=== PATIENT | female | born 1990 | race Caucasian/White ===

== ENCOUNTER 2023-06-24 10:42 | Emergency (ER) | payer OTHER, SELFPAY ==
[2023-06-24 10:50] VITALS: BP 118/68; PULSE 80; RESP 16; TEMP 36.4; O2SAT 98
[2023-06-24 10:52] VITALS: BP 118/68; PULSE 84; RESP 14; TEMP 36.4; O2SAT 98
--- NOTE | 2023-06-24 11:22 | ED.GENADUL_ITS ---
Discharge Plan Disposition Patient Disposition: Home Discharge Details Clinical Impression: Headache Primary Care Provider: Rosie,Local ED Provider: Galina Acosta Home Meds and New Rx's Prescriptions: New sumatriptan succinate 25 mg tablet See Rx Instructions .ROUTE .COMPLEX Qty: 10 0RF Rx Instructions: take 1 tab at onset of headache; if no relief may repeat 1 tab after at least 2 hrs; max = 4 tabs/24 hr prochlorperazine maleate [Compazine] 10 mg tablet 10 mg PO Q8H PRNQty: 10 0RF Continued levetiracetam 1,000 mg tablet 1,500 mg PO DAILY Patient Comments: patient took 750 mg. Thursday, has not been able to take due to vomiting ondansetron HCl 4 mg tablet 4 mg PO DAILY Discharge Instructions Instructions: General Headache (ED) Additional Instructions: May take the sumatriptan as needed for headache, Compazine as needed for nausea and headache Ibuprofen and Tylenol as needed for discomfort Try to keep yourself hydrated with fluids Return earlier should he have new or worsening complaints You have been placed on the list to establish care with a primary care physician locally Medical Decision Making This 32-year-old female presents with report, history of migraine headaches, no significant acute change Neurologically intact, cranial nerves II through XII intact, ambulatory with steady gait, light and sound sensitive, pupils equal round reactive to light and accommodation No indication for CT imaging at this time, pain was nicely controlled with IM 10 mg of Compazine and 7.5 mg of Toradol Requesting discharge home, given several tablets of sumatriptan and Compazine as needed Able to tolerate p.o. Return precautions reviewed in detail No clinical evidence consistent with meningitis, discharged home with stable vitals and exam HPI General Date/Time Provider Initiated Documentation: 06/24/23 11:03 . 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 Patient states headache is quite similar except for the longevity. Denies any recent head trauma, carbon monoxide exposure, vision change. Denies chance of . Denies stiff neck or head fever. Headache predominantly on the right side of her head. Light and sound sensitive. Related Data Home Medications Medication Instructions Recorded Confirmed levetiracetam 1,000 mg tablet 1,500 mg PO DAILY hx siezure 06/24/23 06/24/23 ondansetron HCl 4 mg tablet 4 mg PO DAILY 06/24/23 06/24/23 prochlorperazine maleate 10 mg 10 mg PO Q8H PRN #10 tabs 06/24/23 tablet (Compazine) sumatriptan succinate 25 mg tablet See Rx Instructions PO .COMPLEX 06/24/23 #10 tabs Previous Rx's Medication Instructions Recorded prochlorperazine maleate 10 mg 10 mg PO Q8H PRN #10 tabs 06/24/23 tablet (Compazine) sumatriptan succinate 25 mg tablet See Rx Instructions PO .COMPLEX 06/24/23 #10 tabs Allergies Allergy/AdvReac Type Severity Reaction Status Date / Time No Known Allergies Allergy Unverified 06/24/23 11:03 General Stated Complaint: Headache ANDER: 3 PFSH All Active Problems (Updated 06/24/23 @ 12:29 by THIEN Avelar) Headache (Acute) Social History Smoking/Tobacco Use Status: Never Smoking risk assessment performed?: Yes Alcohol Intake: current Alcohol Intake frequency: a few times a week Substance use type: does not use Course Vital Signs Vital signs: Vital Signs Temperature 36.4 C L 06/24/23 10:50 Pulse 80 06/24/23 10:50 Respiratory Rate 16 06/24/23 10:50 Blood Pressure 118/68 06/24/23 10:50 Pulse Oximetry 98 06/24/23 10:50 Temperature 36.4 C L 06/24/23 10:52 Temperature Source Tympanic 06/24/23 10:52 Pulse 84 06/24/23 10:52 Respiratory Rate 14 06/24/23 10:52 Respiratory Effort Normal 06/24/23 10:52 Blood Pressure 118/68 06/24/23 10:52 Blood Pressure Position Sitting 06/24/23 10:52 Pulse Oximetry 98 06/24/23 10:52 Oxygen Delivery Method Room Air 06/24/23 10:52 Oxygen Flow Rate 0 06/24/23 10:50 Pain Level 2 06/24/23 10:52
[2023-06-24] MEDS: Prochlorperazine 10 MG/2 ML VIAL IM (11:27)
[2023-06-24] MEDS: Ketorolac 15 MG/ML VIAL 7.5 MG IM (11:28)
[2023-06-24 12:34] VITALS: BP 117/85; PULSE 69; RESP 18; O2SAT 99
== END 2023-06-24 12:37 | disposition home or self-care (01) ==
PROVIDERS: Emergency Provider Physician Assistant
DX: G43.909 Migraine, unspecified, not intractable, without status migrainosus (principal); G40.909 Epilepsy, unspecified, not intractable, without status epilepticus; Z87.820 Personal history of traumatic brain injury
CPT/HCPCS: 96372; 99283; J0780; J1885

== ENCOUNTER 2023-07-16 11:49 | Outpatient (CLI) | payer OTHER, SELFPAY ==
[2023-07-16 14:37] LABS: Abs Immature Grans 0.01 10^3/uL (0.0-0.06); Absolute Basophil Count 0.05 10^3/uL (0.0-0.2); Absolute Eosinophil Count 0.11 10^3/uL (0.0-0.7); Absolute Lymphocyte Count 1.98 10^3/uL (1.2-3.4); Absolute Monocyte Count 0.51 10^3/uL (0.1-0.8); Absolute Neutrophil Count 3.02 10^3/uL (1.2-6.7); Basophils % 0.9; Eosinophils % 1.9; HCT 36.9 % (36.0-46.0); HGB 12.6 g/dL (11.2-15.7); Immature Grans % 0.2; Lymphocytes % 34.9; MCHC 34.1 % (32.0-36.0); MCV 94 fL (80-95); MPV 10.7 fL (8.0-11.0); Neutrophils % 53.1; Platelet Count 243 10^3/uL (130-400); RBC 3.94 10^6/uL (3.93-5.22); RDW 11.7 % (11.7-14.6); RDW-SD 40.3 fL; WBC 5.68 10^3/uL (4.4-10.8)
[2023-07-16 15:12] LABS: ALT 21 U/L (14-59); AST 16 U/L (15-37); Albumin 3.9 g/dL (3.4-5.0); Alkaline Phosphatase 60 U/L (46-116); Anion Gap 8.4 mmol/L (3-11); BUN 13 mg/dL (7-18); Bilirubin, Total 0.3 mg/dL (0.2-1.0); CO2 26.6 mmol/L (21.0-32.0); CREATININE 0.7 mg/dL (0.55-1.02); Calcium 9.1 mg/dL (8.5-10.1); Chloride 103 mmol/L (98-107); Estimated GFR 116.31 (mL/min/1.73m2); Glucose 90 mg/dL (74-106); Sodium 138 mmol/L (136-145); Total Protein 7.3 g/dL (6.4-8.2)
[2023-07-18 12:17] LABS: Levetiracetam 27.1 mcg/mL
== END 2023-07-16 11:50 | disposition home or self-care (01) ==
LOC: LBO 07-17 11:49
PROVIDERS: Visit Provider Nurse Practitioner Family
DX: G40.909 Epilepsy, unspecified, not intractable, without status epilepticus (principal)
CPT/HCPCS: 36415; 80053; 80177; 85025

== ENCOUNTER 2023-10-01 16:02 | Emergency (ER) | payer OTHER, SELFPAY ==
[2023-10-01 16:06] VITALS: BP 124/68; PULSE 76; RESP 16; TEMP 36.2; O2SAT 96
--- NOTE | 2023-10-01 16:20 | ED.GENADUL_ITS ---
Discharge Plan Disposition Patient Disposition: Home Condition: Stable Discharge Details Clinical Impression: Migraine syndrome Primary Care Provider: Unknown,Unknown ED Provider: Dylon Singleton Home Meds and New Rx's Prescriptions: Continued levetiracetam 1,000 mg tablet 1,500 mg PO DAILY Patient Comments: patient took 750 mg. Thursday, has not been able to take due to vomiting ondansetron HCl 4 mg tablet 4 mg PO DAILY sumatriptan succinate 25 mg tablet See Rx Instructions .ROUTE .COMPLEX Qty: 10 0RF Rx Instructions: take 1 tab at onset of headache; if no relief may repeat 1 tab after at least 2 hrs; max = 4 tabs/24 hr prochlorperazine maleate [Compazine] 10 mg tablet 10 mg PO Q8H PRNQty: 10 0RF Discharge Instructions Instructions: Migraine Headache (ED) Additional Instructions: You were seen in the emergency department for your migraine headache syndrome. You had some vomiting with this and we tried to take care of this with several medicines which achieved good relief. Please continue taking your at home migraine medications and your at home dose of Keppra. Please return to the ER for any severe increase in symptoms especially with fever and neck stiffness, please return for any intractable nausea or vomiting, any near fainting episodes or palpitations or visual changes or altered mentation. HPI General Date/Time Provider Initiated Documentation: 10/01/23 16:11 . HPI Narrative: 32 year-old female presents to ED today by POV/ambulating with her spouse with a chief complaint of R sided headache- has chronic migraines and history of TBI- with onset for the past few days. Feels like her usual migraines but she hasn't been able to keep down oral meds, also missed her Keppra dose last night. Quality described as R sided migraine, nausea/vomiting without vertigo, no radiation to numbness/tingling, weakness, hemiparesis, recent URI/fever, neck stiffness. Severity is described as moderate. Palliating factors include attempted oral meds but keeps vomiting them up. Provoking factors include nothing specific. Patient not anticoagulated. Related Data Home Medications Medication Instructions Recorded Confirmed levetiracetam 1,000 mg tablet 1,500 mg PO DAILY hx siezure 06/24/23 10/01/23 ondansetron HCl 4 mg tablet 4 mg PO DAILY 06/24/23 10/01/23 prochlorperazine maleate 10 mg 10 mg PO Q8H PRN #10 tabs 06/24/23 10/01/23 tablet (Compazine) sumatriptan succinate 25 mg tablet See Rx Instructions PO .COMPLEX 06/24/23 10/01/23 #10 tabs Previous Rx's Medication Instructions Recorded prochlorperazine maleate 10 mg 10 mg PO Q8H PRN #10 tabs 06/24/23 tablet (Compazine) sumatriptan succinate 25 mg tablet See Rx Instructions PO .COMPLEX 06/24/23 #10 tabs Allergies Allergy/AdvReac Type Severity Reaction Status Date / Time No Known Allergies Allergy Unverified 10/01/23 16:06 General Stated Complaint: Headache ANDER: 3 Review of Systems All systems reviewed & are unremarkable except as noted in HPI and below Exam Narrative Exam Narrative: GENERAL APPEARANCE: Well-nourished, non-toxic, awake and alert, atraumatic, no acute distress. SKIN: Warm, pink, dry, intact, without rashes/lesions/ulcerations. HEAD: Normocephalic, atraumatic, normal hair distribution for gender/age. 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 ENT: Nares patent, no circumoral cyanosis, no facial swelling NECK: Supple, trachea midline, painless cervical ROM. LUNGS/CHEST: Non-labored respirations, normal A/P diameter, symmetrical expansion, no chest wall deformity HEART (CV/PV): No peripheral edema, no JVD. ABDOMEN: Soft, non-distended, no guarding. MSK: Normal ROM, no swelling/deformity to bilateral UEs or LEs, moving all extremities without weakness, no cyanosis, spine midline without tenderness, normal curvature. NEURO: Mental Status AAOx4 - alert to person, place, time, events No facial droop, no forehead involvement, no dysmetria with FNF Motor: No focal weakness - strength 5/5 in bilateral UEs and LEs, proximal and distal, symmetric. Sensory: sensation intact to light touch globally. Gait normal: patient ambulated without ataxia into ED room. PSYCH: euthymic, cooperative, pleasant, appropriate speech Course Vital Signs Vital signs: Vital Signs Temperature 36.2 C L 10/01/23 16:06 Pulse 76 10/01/23 16:06 Respiratory Rate 16 10/01/23 16:06 Blood Pressure 124/68 10/01/23 16:06 Pulse Oximetry 96 10/01/23 16:06 Temperature 36.2 C L 10/01/23 16:06 Temperature Source Temporal Artery Scan 10/01/23 16:06 Pulse 76 10/01/23 16:06 Respiratory Rate 16 10/01/23 16:06 Respiratory Effort Normal, Non-Labored 10/01/23 16:09 Blood Pressure 124/68 10/01/23 16:06 Blood Pressure Position Supine 10/01/23 16:06 Pulse Oximetry 96 10/01/23 16:06 Oxygen Delivery Method Room Air 10/01/23 16:06 Oxygen Flow Rate 0 10/01/23 16:06 Pain Level 2 10/01/23 16:06 Medical Decision Making This dictation utilizes [id number] dictation software and may contain unedited grammatical errors. 32 y/o F presents to ED today with a chief complaint of R-sided migraine headache, has chronic migranes- usually takes sumatriptan but hasn't been able to keep down oral medications. Has history TBI and is on Keppra, with missed dose last night. Patient states it feels like her usual migraines, denies diarrhea, denies abdominal pain, states vomiting without vertigo, denies numbness/tingling/weakness to any extremity, denies visual changes. Patients' medical history: TBI history. 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 Pertinent exam findings / vital signs include no dysmetria with cerebellar testing, neuro intact, chronic OS vertical gaze palsy, benign cardiopulmonary status, nontoxic vitals. Differential / pathologies of concern include Migraine Syndrome, unlikely ICH, Consider Nausea/vomiting/gastritis. Diagnostic studies of: -CBC, CMP, CRP/ESR, Lactate. Interventions of: -IVF NS, IV Tylenol 1g, 15mg IV Ketorlac, 10mg IV Reglan, 25mg IV Benadryl, 1x dose 10mg IV Dexamethasone for migraine trial of relief, will PO challenge with Sumatriptan after effectiveness achieved for N/V. -Patient refused IV Keppra, states hasn't had a seizure in 9 years, feels comfortable taking PO dose tonight. ED Course/Assessment/Plan: 32-year-old female presents with migraine 4 days onset, has chronic right-sided migraines and has been unable to hold down p.o. medications. Her migraine symptoms achieved near complete relief with IV cocktail of medicines including Tylenol Toradol Reglan and Benadryl as well as a one-time dose of dexamethasone. I advised her to take p.o. dose of sumatriptan when she gets home, she was comfortable with taking her p.o. Keppra when she got home. I advised her strict return criteria for any severe headaches with fevers and neck stiffness as well as intractable nausea and vomiting. Findings not consistent with meningismus, altered mentation, toxic presentation. Disposition of Migraine Syndrome. Patient verbalized understanding of the plan and return to ED criteria and engaged in shared decision making. Medical Records Medical records reviewed: Yes I reviewed the patient's medical records. Lab Data Lab results reviewed: Yes I reviewed the patient's lab results. Labs: Laboratory Tests Range/Units 10/01/23 16:55 WBC (4.4-10.8) 10^3/uL 9.12 RBC (3.93-5.22) 10^6/uL 4.10 Hgb (11.2-15.7) g/dL 13.1 Hct (36.0-46.0) % 38.7 MCV (80-95) fL 94 MCH (27.0-33.0) pg 32.0 MCHC (32.0-36.0) % 33.9 RDW (11.7-14.6) % 11.4 L Plt Count (130-400) 10^3/uL MPV (8.0-11.0) fL Immature Gran % 0.3 Neutrophils % 80.2 Lymphocytes % 14.8 Monocytes % 4.1 Eosinophils % 0.1 Basophils % 0.5 Nucleated RBC % (0.0-0.3) % 0.0 Absolute Neutrophils (1.2-6.7) 10^3/uL 7.31 H Absolute Lymphocytes (1.2-3.4) 10^3/uL 1.35 Absolute Monocytes (0.1-0.8) 10^3/uL 0.37 Absolute Eosinophils (0.0-0.7) 10^3/uL 0.01 Absolute Basophils (0.0-0.2) 10^3/uL 0.05 RBC Morphology Normal ESR (0-20) mm/hr 21 H VBG Lactate (0.6-1.4) mmol/L 1.7 H Sodium (136-145) mmol/L 142 Potassium (3.5-5.1) mmol/L 3.6 Chloride (98-107) mmol/L 103 Carbon Dioxide (21.0-32.0) mmol/L 26.9 Anion Gap (3-11) mmol/L 12.1 H BUN (7-18) mg/dL 14 Creatinine (0.55-1.02) mg/dL 0.8 Est GFR (CKD-EPI 2020) (mL/min/1.73m2) 99.09 Glucose (74-106) mg/dL 86 Calcium (8.5-10.1) mg/dL 9.3 Magnesium (1.8-2.4) mg/dL 2.1 Total Bilirubin (0.2-1.0) mg/dL 0.6 AST (15-37) U/L 14 L ALT (14-59) U/L 19 Alkaline Phosphatase (46-116) U/L 69 C-Reactive Protein (<or=0.5) mg/dL < 0.50 Total Protein (6.4-8.2) g/dL 8.6 H Albumin (3.4-5.0) g/dL 4.4 Quality:[facility] Health Related Social Needs: No Data to Display PFSH All Active Problems (Updated 10/01/23 @ 17:44 by THIEN Ledbetter) Migraine syndrome (Acute) Social History Smoking/Tobacco Use Status: Never Smoking risk assessment performed?: Yes Alcohol Intake: current Alcohol Intake frequency: a few times a week Substance use type: does not use Housing: house Do you feel safe at home: Yes Do you feel safe in your relationship?: Yes
[2023-10-01] MEDS: Normal Saline 1,000 ML 1000 ML IV (17:00)
[2023-10-01 17:05] LABS: Lactate 1.7 mmol/L (0.6-1.4)
[2023-10-01 17:07] LABS: Abs Immature Grans 0.03 10^3/uL (0.0-0.06); Absolute Basophil Count 0.05 10^3/uL (0.0-0.2); Absolute Eosinophil Count 0.01 10^3/uL (0.0-0.7); Absolute Lymphocyte Count 1.35 10^3/uL (1.2-3.4); Absolute Monocyte Count 0.37 10^3/uL (0.1-0.8); Absolute Neutrophil Count 7.31 10^3/uL (1.2-6.7); Basophils % 0.5; Eosinophils % 0.1; HCT 38.7 % (36.0-46.0); HGB 13.1 g/dL (11.2-15.7); Immature Grans % 0.3; Lymphocytes % 14.8; MCHC 33.9 % (32.0-36.0); MCV 94 fL (80-95); Monocytes % 4.1; Neutrophils % 80.2; RDW 11.4 % (11.7-14.6); RDW-SD 39.2 fL; WBC 9.12 10^3/uL (4.4-10.8)
[2023-10-01 17:08] LABS: ESR 21 mm/hr (0-20)
[2023-10-01] MEDS: Metoclopramide 10 MG/2 ML VIAL IVP (17:22)
[2023-10-01 17:24] LABS: ALT 19 U/L (14-59); AST 14 U/L (15-37); Albumin 4.4 g/dL (3.4-5.0); Alkaline Phosphatase 69 U/L (46-116); Anion Gap 12.1 mmol/L (3-11); BUN 14 mg/dL (7-18); Bilirubin, Total 0.6 mg/dL (0.2-1.0); C-Reactive Protein < 0.50 mg/dL (<or=0.5); CO2 26.9 mmol/L (21.0-32.0); CREATININE 0.8 mg/dL (0.55-1.02); Calcium 9.3 mg/dL (8.5-10.1); Chloride 103 mmol/L (98-107); Diff Comment PLT Morph Reviewed; Estimated GFR 99.09 (mL/min/1.73m2); Glucose 86 mg/dL (74-106); Magnesium 2.1 mg/dL (1.8-2.4); Potassium 3.6 mmol/L (3.5-5.1); RBC Morphology Normal; Sodium 142 mmol/L (136-145); Total Protein 8.6 g/dL (6.4-8.2)
[2023-10-01] MEDS: Dexamethasone 10 MG/ML VIAL IVP (17:26)
[2023-10-01] MEDS: diphenhydrAMINE 50 MG/ML VIAL 25 MG IVP (17:29)
[2023-10-01] MEDS: Ketorolac 15 MG/ML VIAL IVP (17:31)
[2023-10-01] MEDS: ACETAMINOPHEN 1,000 MG/100 ML BTL 400 MG IVPB (17:36)
[2023-10-01 18:06] VITALS: BP 116/74; PULSE 83; TEMP 36.4; O2SAT 100
[2023-10-01 18:37] VITALS: BP 116/74; BP 124/78; PULSE 74; PULSE 83; RESP 16; RESP 18; TEMP 36.3; TEMP 36.4; O2SAT 100; O2SAT 96
== END 2023-10-01 18:34 | disposition home or self-care (01) ==
PROVIDERS: Emergency Provider Physician Assistant
DX: G43.909 Migraine, unspecified, not intractable, without status migrainosus (principal); R11.10 Vomiting, unspecified
CPT/HCPCS: 80053; 85652; 96374; 96375; 99284; 83605; 83735; 85025; 86140; 99283; J0131; J1100; J1200; J1885; J2765

== ENCOUNTER 2023-11-09 11:24 | Emergency (ER) | payer OTHER, SELFPAY ==
[2023-11-09 11:28] VITALS: BP 107/73; PULSE 78; RESP 16; TEMP 36.6
[2023-11-09 13:26] LABS: Bilirubin Negative (Negative); Blood Negative (Negative); Clarity Clear (Clear); Glucose Negative (Negative); Ketones Negative (Negative); Leukocyte Esterase Negative (Negative); Nitrite Negative (Negative); Urobilinogen 0.2 mg/dL (Up to 0.2)
--- NOTE | 2023-11-09 13:31 | ED.GENADUL_ITS ---
Discharge Plan Disposition Patient Disposition: Home Condition: Stable Discharge Details Clinical Impression: Lumbar back sprain Primary Care Provider: Unknown,Unknown ED Provider: Opal Ahmadi Home Meds and New Rx's Prescriptions: New methocarbamol 500 mg tablet 500 mg PO TID PRN (Reason: muscle spasm) 7 Days Qty: 20 0RF Rx Instructions: Take 1 tablet up to 3 times daily as needed for the next 7 days for muscle relaxant. methocarbamol 500 mg tablet 500 mg PO TID PRN (Reason: muscle spasm) 7 Days Qty: 21 0RF Rx Instructions: Take 1 tablet by mouth up to 3 times daily as needed for the next 7 days for muscle spasm. No Action levetiracetam 1,000 mg tablet 1,500 mg PO DAILY Patient Comments: patient took 750 mg. Thursday, has not been able to take due to vomiting ondansetron HCl 4 mg tablet 4 mg PO DAILY Hold Instructions: Prescription Finished sumatriptan succinate 25 mg tablet See Rx Instructions .ROUTE .COMPLEX Qty: 10 0RF Rx Instructions: take 1 tab at onset of headache; if no relief may repeat 1 tab after at least 2 hrs; max = 4 tabs/24 hr amitriptyline 25 mg tablet Discharge Instructions Instructions: Lower Back Exercises (ED) Additional Instructions: No abnormality of the x-rays of your lumbar spine or pelvis. I do suspect musculoskeletal strain or SI joint abnormality. Please alternate Tylenol and ibuprofen ice and heat. Take the muscle relaxer as needed. This may make you sleepy. You have been referred to physical therapy. Follow up with primary care provider in 3-5 days. Return to ED sooner if any worsening or concerns. Please take Tylenol or Ibuprofen with food every 4-6 hours as needed for pain and swelling. Stand Alone Forms: Physical Therapy Referral, Work Release HPI General Mode of arrival: ambulatory . Date/Time Provider Initiated Documentation: 11/09/23 12:12 . Limitations to Documentation: no limitations . Information obtained by: patient, RN notes reviewed and old records reviewed . HPI Narrative: 32-year-old female, complaints with left lower back pain is been ongoing for the last few weeks. Reports 2 weeks ago went bowling is now having pain with walking and bending over. Has been taking Flexeril ibuprofen Tylenol with little to no relief. Denies any loss of bowel or bladder control or saddle anesthesia. She reports radiation into her left hip. Denies any radiation down her left leg no weakness or numbness. No history of back surgeries. Related Data Home Medications Medication Instructions Recorded Confirmed levetiracetam 1,000 mg tablet 1,500 mg PO DAILY hx brittanyre 06/24/23 11/09/23 ondansetron HCl 4 mg tablet 4 mg PO DAILY 06/24/23 11/09/23 sumatriptan succinate 25 mg tablet See Rx Instructions PO .COMPLEX 06/24/23 11/09/23 #10 tabs amitriptyline 25 mg tablet mg 11/09/23 methocarbamol 500 mg tablet 500 mg PO TID PRN muscle spasm 7 11/09/23 days #20 tabs methocarbamol 500 mg tablet 500 mg PO TID PRN muscle spasm 7 11/09/23 days #21 tabs Previous Rx's Medication Instructions Recorded sumatriptan succinate 25 mg tablet See Rx Instructions PO .COMPLEX 06/24/23 #10 tabs methocarbamol 500 mg tablet 500 mg PO TID PRN muscle spasm 7 11/09/23 days #20 tabs methocarbamol 500 mg tablet 500 mg PO TID PRN muscle spasm 7 11/09/23 days #21 tabs Allergies Allergy/AdvReac Type Severity Reaction Status Date / Time No Known Allergies Allergy Unverified 10/01/23 16:06 General Stated Complaint: Nk/Back Pain ANDER: 4 Review of Systems Musculoskeletal Musculoskeletal: Reports as per HPI and Reports back pain Exam Narrative Exam Narrative: Constitutional: Alert and oriented x3. Appears stated age. Normal body habitus. Head: Normocephalic, no trauma. Eyes: Pupils PERRL, Red reflex noted, EOM's intact. Eyelids symmetrical without lesions, discharge, or swelling. ENT: Bilateral TM's WNL, External ear normal to inspection, no mastoid TTP, swelling, or erythema, Nasal turbinates WNL, no nasal discharge. Normal dentition, Posterior pharynx WNL, no exudate. Chest: RRR, Normal S1, S2, distal pulses intact. Resp: Lungs clear to auscultation bilaterally, no wheezes, rales, or rhonchi. Abdomen: Soft, non-distended, Normoactive bowel sounds all 4 quads. Musculoskeletal: Normal gait, no crepitus or step-off noted on CT T or L-spine. Mild paraspinous tenderness with palpation. Skin: No suspicious rashes or lesions. Capillary refill less than 2 sec. Neurologic: Cranial nerves II-XII intact. Alert and oriented x 3. Motor: No deficits noted. Sensory: Intact bilaterally all 4 extremities. Hematologic/Lymphatic: No ecchymosis, no lymphadenopathy. Course Vital Signs Vital signs: Vital Signs Temperature 36.6 C 11/09/23 11:28 Pulse 78 11/09/23 11:28 Respiratory Rate 16 11/09/23 11:28 Blood Pressure 107/73 11/09/23 11:28 Temperature 36.6 C 11/09/23 11:28 Pulse 78 11/09/23 11:28 Respiratory Rate 16 11/09/23 11:28 Respiratory Effort Normal 11/09/23 13:19 Blood Pressure 107/73 11/09/23 11:28 Blood Pressure Position Sitting 11/09/23 11:28 Oxygen Delivery Method Room Air 11/09/23 11:28 Oxygen Flow Rate 0 11/09/23 11:28 Pain Level 4 11/09/23 11:28 Comment 500 APAP, two Dual Action Motril, 10mg Flexeril at approx 0900 11/09/23 11:28 Lab/Test Results Lab/Test Results: Laboratory Tests Range/Units 11/09/23 13:19 Urine Color (Yellow) Yellow Urine Clarity (Clear) Clear Urine pH (5-8) 8.0 Ur Specific [place]anan (1.005-1.025) 1.020 Urine Protein (Neg-Trace) mg/dL Negative Urine Ketones (Negative) mg/dL Negative Urine Blood (Negative) Negative Urine Nitrite (Negative) Negative Urine Bilirubin (Negative) Negative Urine Urobilinogen (Up to 0.2) mg/dL 0.2 Ur Leukocyte Esterase (Negative) Negative Urine Glucose (Negative) mg/dL Negative POC- Test(urine) Negative Medical Decision Making 32-year-old female, complaints with left lower back pain is been ongoing for the last few weeks. Reports 2 weeks ago went bowling is now having pain with walking and bending over. Has been taking Flexeril ibuprofen Tylenol with little to no relief. Denies any loss of bowel or bladder control or saddle anes thesia. She reports radiation into her left hip. Denies any radiation down her left leg no weakness or numbness. No history of back surgeries. L-spine x-rays ordered, urinalysis urine test. X-rays of your L-spine and pelvis are within normal limits. I do suspect musculoskeletal strain. Please follow-up with physical therapy. Will give a physical therapy referral. Patient ambulatory upon discharge without difficulty. This text was generated using ImpactRxation system, please disregard any oddities of phrase or misspellings. Imaging Data Radiologic Study: Imaging: X-Ray Radiologist's impression: XR LUMBAR SPINE COMPLETE EXAM: XR LUMBAR SPINE COMPLETE CLINICAL HISTORY: Pain,. TECHNIQUE: 2D digital imaging was performed. COMPARISON: No exams were available for comparison FINDINGS: Five views No evidence of fracture, listhesis, nor pars interarticularis defects. All the disc spaces exhibit normal height. Facet joints appear unremarkable at all levels. Bone density normal. No osseous lesions. No scoliosis. Visualized SI joints appear unremarkable. IMPRESSION: No significant radiograph findings on these five views of the lumbosacral spinal column. Quality:SDOH Health Related Social Needs: No Data to Display PFSH All Active Problems (Updated 11/09/23 @ 14:03 by Opal Ahmadi NP) Lumbar back sprain (Acute) Social History Smoking/Tobacco Use Status: Never Smoking risk assessment performed?: Yes Alcohol Intake: current Alcohol Intake frequency: a few times a week Substance use type: does not use Housing: house Do you feel safe at home: Yes Do you feel safe in your relationship?: Yes
--- NOTE | 2023-11-09 13:50 | DI.RAD_ITS ---
Exam(s) XR PELVIS AP EXAM: XR PELVIS AP CLINICAL HISTORY: Pain left hip. TECHNIQUE: 2D digital imaging was performed. COMPARISON: No exams were available for comparison FINDINGS: Single AP view No evidence of pelvic nor hip fracture. No hip joint space narrowing. No evidence of avascular necr osis. Bone density in the hips and pelvis is normal and there are no osseous lesions evident. IMPRESSION: No significant osseous findings in the pelvis and hips. DATA REPOSITORY: RADIATION DOSE DELIVERED:
--- NOTE | 2023-11-09 13:50 | DI.RAD_ITS ---
Exam(s) XR LUMBAR SPINE COMPLETE EXAM: XR LUMBAR SPINE COMPLETE CLINICAL HISTORY: Pain,. TECHNIQUE: 2D digital imaging was performed. COMPARISON: No exams were available for comparison FINDINGS: Five views No evidence of fracture, listhesis, nor pars interarticularis defects. All the disc spaces exhibit n ormal height. Facet joints appear unremarkable at all levels. Bone density normal. No osseous lesi ons. No scoliosis. Visualized SI joints appear unremarkable. IMPRESSION: No significant radiograph findings on these five views of the lumbosacral spinal column. DATA REPOSITORY: RADIATION DOSE DELIVERED:
== END 2023-11-09 14:19 | disposition home or self-care (01) ==
PROVIDERS: Emergency Provider Registered Nurse Emergency
DX: M54.50 Low back pain, unspecified (principal); S33.5XXA Sprain of ligaments of lumbar spine, initial encounter; X50.9XXA Other and unspecified overexertion or strenuous movements or postures, initial encounter; Y93.54 Activity, bowling
CPT/HCPCS: 81025; 99284; 72110; 72170; 81003

== ENCOUNTER 2023-11-24 19:02 | Emergency (ER) | payer OTHER, SELFPAY ==
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
[2023-11-24 19:08] VITALS: BP 125/78; PULSE 77; RESP 18; TEMP 36.7; O2SAT 99
[2023-11-24 19:22] VITALS: BP 119/78; PULSE 76; RESP 18; TEMP 36.9; O2SAT 99
[2023-11-24] MEDS: Ketorolac 15 MG/ML VIAL IVP (20:21)
[2023-11-24] MEDS: diphenhydrAMINE 50 MG/ML VIAL 12.5 MG IVP (20:22)
[2023-11-24] MEDS: Acetaminophen 500 MG TAB 1000 MG PO (20:24)
[2023-11-24] MEDS: Normal Saline Flush 10 ML SYR IVP (20:24)
[2023-11-24] MEDS: Metoclopramide 10 MG/2 ML VIAL IVP (20:24)
[2023-11-24 22:16] VITALS: BP 119/68; PULSE 78; RESP 17; TEMP 36.7; O2SAT 99
== END 2023-11-24 22:01 | disposition home or self-care (01) ==
PROVIDERS: Emergency Provider Emergency Medicine Emergency Medical Services
DX: G43.909 Migraine, unspecified, not intractable, without status migrainosus (principal); Z87.820 Personal history of traumatic brain injury; Z86.69 Personal history of other diseases of the nervous system and sense organs
CPT/HCPCS: 96374; 96375; 99284; 99283; J1200; J1885; J2765

== ENCOUNTER 2024-10-22 17:02 | Emergency (ER) | payer OTHER, SELFPAY ==
[2024-10-22 17:16] VITALS: BP 143/81; PULSE 90; RESP 16; TEMP 36.9; O2SAT 98
[2024-10-22 17:18] VITALS: BP 143/81; PULSE 90; RESP 16; TEMP 36.9; O2SAT 98
--- NOTE | 2024-10-22 17:55 | W.ED.GENAD ---
Discharge Plan Disposition Patient Disposition: Home Condition: Stable Discharge Details Clinical Impression: Migraine Primary Care Provider: Rosina Lowe ED Provider: Simone Ríos Home Meds and New Rx's Prescriptions: Continued amitriptyline 25 mg tablet 50 mg PO QHS levetiracetam 1,000 mg tablet 750 mg PO BID Patient Comments: patient took 750 mg. Thursday, has not been able to take due to vomiting metoclopramide HCl [Reglan] 10 mg tablet 10 mg PO BID PRN Rx Instructions: administer 30 minutes before meals naproxen 500 mg tablet 500 mg PO .COMPLEX Rx Instructions: 500 mg orally at onset of headache. May repeat 2-3 hours if headache not resolved. Not to exceed 2 tabs / 24 hours; cyclobenzaprine 10 mg tablet 10 mg PO TID PRN Rx Instructions: for muscle spasm sumatriptan succinate 25 mg tablet See Rx Instructions .ROUTE .COMPLEX Qty: 10 0RF Rx Instructions: take 1 tab at onset of headache; if no relief may repeat 1 tab after at least 2 hrs; max = 4 tabs/24 hr Discharge Instructions Additional Instructions: Follow-up with either your primary care provider or express care if your symptoms continue this week. If you feel more ill or have persistent vomiting despite the Zofran or severe worsening pain or high fevers return to the emergency department for reevaluation HPI General Mode of arrival: ambulatory. Date/Time Provider Initiated Documentation: 10/22/24 17:18. Limitations to Documentation: no limitations. Information obtained by: patient. History of Present Illness 33 year old F presents to the emergency department with the chief complaint of Migraine, described as moderate, Quality is described as aching, Patient started experiencing this day(s) (1) and it has been constant. No relieving factors improve symptom(s), No exacerbating factors reported . Patient notes denies fever/chills. Related Data Home Medications ?Medication ?Instructions ?Recorded ?Confirmed sumatriptan succinate 25 mg tablet See Rx Instructions PO .COMPLEX 06/24/23 10/22/24 #10 tabs amitriptyline 25 mg tablet 50 mg PO QHS 12/07/23 10/22/24 cyclobenzaprine 10 mg tablet 10 mg PO TID PRN 12/07/23 10/22/24 levetiracetam 1,000 mg tablet 750 mg PO BID hx siezure 12/07/23 10/22/24 metoclopramide HCl 10 mg tablet 10 mg PO BID PRN 12/07/23 10/22/24 (Reglan) naproxen 500 mg tablet 500 mg PO .COMPLEX 12/07/23 10/22/24 Previous Rx's ?Medication ?Instructions ?Recorded sumatriptan succinate 25 mg tablet See Rx Instructions PO .COMPLEX 06/24/23 #10 tabs Allergies Allergy/AdvReac Type Severity Reaction Status Date / Time No Known Allergies Allergy Unverified 10/22/24 17:18 General Stated Complaint: Headache ANDER: 4 Review of Systems All systems reviewed & are unremarkable except as noted in HPI and below Constitutional Constitutional: Denies chills, Denies fever(s), Reports headache(s) and Denies weakness ENT Ears, Nose, Mouth, and Throat: Reports headache(s) Cardiovascular Cardiovascular: Denies chest pain and Denies dyspnea Respiratory Respiratory: Denies cough and Denies dyspnea Gastrointestinal Gastrointestinal: Denies abdominal pain, Reports nausea and Denies vomiting Neurologic Neurologic: Reports headache(s) and Denies weakness Exam Const General: no acute distress Orientation: alert [facility] Head: normal to inspection Ears: external ears normal General nose exam: external nose normal Mouth: moist mucous membranes Eyes General: appearance normal, both eyes and all related structures Neck Neck: normal visual inspection Resp Effort & Inspection: normal respiratory effort and able to speak in complete sentences Cardio Rate: regular rate Skin General skin exam: no rashes or lesions noted Neuro General: patient alert and patient oriented x3 Cranial Nerves: CN's II-XI intact bilaterally Cognition: normal cognition Speech: speech normal Extrem General: normal to inspection Psych Mental Status: mental status grossly normal Course Vital Signs Vital signs: Vital Signs Temperature 36.9 C 10/22/24 17:16 Pulse 90 10/22/24 17:16 Respiratory Rate 16 10/22/24 17:16 Blood Pressure 143/81 H 10/22/24 17:16 Pulse Oximetry 98 10/22/24 17:16 Temperature 36.9 C 10/22/24 17:18 Pulse 90 10/22/24 17:18 Respiratory Rate 16 10/22/24 17:18 Blood Pressure 143/81 H 10/22/24 17:18 Pulse Oximetry 98 10/22/24 17:18 Pain Level 3 10/22/24 17:43 Medical Decision Making 33-year-old female who states he has a history of migraines and also seizures comes in with 1 day of [place] worsening frontal headache that she says is consistent with prior migraines. Her usual remedies of sumatriptan and caffeine have not helped so she came here. She denies any fevers, vomiting but has had nausea. She is well-appearing speaking full sentences. She has no deficits noted on neurological exam, no facial swelling. No meningismus. I suspect migraine given her history we will treat with IV Compazine Toradol Benadryl and dexamethasone and reassess. Given the pain is slowly worsened and is similar to prior migraines I doubt entities such as subarachnoid hemorrhage and she has no meningismus to suggest [employer] infection Patient feeling better requesting discharge, she has no meningismus and appears well. She will follow-up with either [facility] care or her primary care provider and return precautions given Differential Diagnosis Differential Diagnosis: Migraine, tension headache Quality:SDOH Health Related Social Needs: No Data to Display PFSH All Active Problems (Updated 10/22/24 @ 18:59 by Simone Ríos MD) Migraine (Chronic) Medical History (Updated 10/22/24 @ 18:59 by Simone Ríos MD) Seizure Nonintractable epilepsy History of facial trauma Nonintractable epilepsy without status epilepticus Dermatofibroma Tension headache Traumatic brain injury Surgical History (Updated 12/07/23 @ 13:39 by Elinor Rivera RN) History of facial surgery cranial facial surgery Family History (Updated 02/29/24 @ 12:41 by Staci Carrillo) Maternal Grandmother Heart disease Paternal Grandfather History of heart attack Social History Smoking/Tobacco Use Status: Never Smoking risk assessment performed?: Yes Alcohol Intake: current Alcohol Intake frequency: a few times a month Alcohol type: wine Substance use type: does not use Housing: house Do you feel safe at home: Yes Do you feel safe in your relationship?: Yes
[2024-10-22] MEDS: diphenhydrAMINE 50 MG/ML VIAL 25 MG IVP (17:59)
[2024-10-22] MEDS: Normal Saline 1,000 ML 1000 ML IV (17:59)
[2024-10-22] MEDS: Prochlorperazine 10 MG/2 ML VIAL IVP (17:59)
[2024-10-22] MEDS: Ketorolac 15 MG/ML VIAL IVP (18:00)
[2024-10-22] MEDS: Dexamethasone 10 MG/ML VIAL IVP (18:00)
== END 2024-10-22 19:17 | disposition home or self-care (01) ==
LOC: ER 19:19
PROVIDERS: Emergency Provider Emergency Medicine; PCP Nurse Practitioner Family
DX: G43.909 Migraine, unspecified, not intractable, without status migrainosus (principal); Z87.820 Personal history of traumatic brain injury
CPT/HCPCS: 96374; 96375; 99284; J0780; J1100; J1200; J1885

== ENCOUNTER 2024-11-01 11:46 | Emergency (ER) | payer OTHER, SELFPAY ==
[2024-11-01 12:08] VITALS: BP 103/70; PULSE 78; RESP 14; TEMP 36.7; O2SAT 96
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
[2024-11-01] MEDS: Ketorolac 15 MG/ML VIAL IVP (12:58)
[2024-11-01] MEDS: Dexamethasone 10 MG/ML VIAL IVP (12:58)
[2024-11-01] MEDS: Prochlorperazine 10 MG/2 ML VIAL IVP (12:59)
[2024-11-01] MEDS: Acetaminophen 500 MG TAB 1000 MG PO (12:59)
[2024-11-01 14:15] VITALS: BP 123/78; PULSE 77; RESP 20; O2SAT 99
== END 2024-11-01 14:15 | disposition home or self-care (01) ==
PROVIDERS: Emergency Provider Emergency Medicine; PCP Nurse Practitioner Family
DX: G43.909 Migraine, unspecified, not intractable, without status migrainosus (principal)
CPT/HCPCS: 96374; 96375; 99284; J0780; J1100; J1885

== ENCOUNTER 2024-11-13 15:01 | Emergency (ER) | payer OTHER, SELFPAY ==
[2024-11-13 15:04] VITALS: BP 107/68; PULSE 78; RESP 20; TEMP 36.5; O2SAT 96
[2024-11-13 15:07] VITALS: BP 107/68; PULSE 78; RESP 20; TEMP 36.5; O2SAT 96
--- NOTE | 2024-11-13 15:15 | ED.GENADUL_ITS ---
Discharge Plan Disposition Patient Disposition: Home Condition: Stable Discharge Details Clinical Impression: Migraine headache without aura Primary Care Provider: Rosina Lowe ED Provider: Simone Ríos Home Meds and New Rx's Prescriptions: Continued amitriptyline 50 mg tablet 50 mg PO QHS Qty: 90 3RF sumatriptan succinate 100 mg tablet See Rx Instructions PO .COMPLEX Qty: 9 5RF Rx Instructions: take 1 tab at onset of headache; if no relief, may repeat 1 tab after at least 2 hrs; max = 2 tabs/24 hrs PO levetiracetam 750 mg tablet 750 mg PO BID Qty: 180 3RF metoclopramide HCl [Reglan] 10 mg tablet 10 mg PO BID PRN Rx Instructions: administer 30 minutes before meals cyclobenzaprine 10 mg tablet 10 mg PO TID PRN Rx Instructions: for muscle spasm Discharge Instructions Additional Instructions: Follow-up with either your primary care provider and neurology. Continue to take your migraine medications as needed and as prescribed. If you feel more ill or develop any new symptoms such as persistent vomiting or high fevers return to the emergency department for reevaluation HPI General Mode of arrival: ambulatory . Date/Time Provider Initiated Documentation: 11/13/24 15:09 . Limitations to Documentation: no limitations . Information obtained by: patient . History of Present Illness 33 year old F presents to the emergency department with the chief complaint of migraine, described as moderate, Patient reports no radiation. Patient started experiencing this day(s) (1) and it has been constant. No relieving factors improve symptom(s), No exacerbating factors reported . Patient notes nausea/vomiting. Related Data Home Medications ?Medication ?Instructions ?Recorded ?Confirmed cyclobenzaprine 10 mg tablet 10 mg PO TID PRN 12/07/23 11/13/24 metoclopramide HCl 10 mg tablet 10 mg PO BID PRN 12/07/23 11/13/24 (Reglan) amitriptyline 50 mg tablet 50 mg PO QHS #90 tabs 11/03/24 11/13/24 levetiracetam 750 mg tablet 750 mg PO BID #180 tabs 11/03/24 11/13/24 sumatriptan succinate 100 mg tablet See Rx Instructions PO .COMPLEX #9 11/03/24 11/13/24 tabs Previous Rx's ?Medication ?Instructions ?Recorded amitriptyline 50 mg tablet 50 mg PO QHS #90 tabs 11/03/24 levetiracetam 750 mg tablet 750 mg PO BID #180 tabs 11/03/24 sumatriptan succinate 100 mg tablet See Rx Instructions PO .COMPLEX #9 11/03/24 tabs Allergies Allergy/AdvReac Type Severity Reaction Status Date / Time No Known Allergies Allergy Unverified 11/13/24 15:08 General Stated Complaint: Headache ANDER: 3 Review of Systems All systems reviewed & are unremarkable except as noted in HPI and below Constitutional Constitutional: Denies chills, Denies fever(s), Reports headache(s) and Denies weakness Eyes Eyes: Denies loss of vision ENT Ears, Nose, Mouth, and Throat: Reports headache(s) Cardiovascular Cardiovascular: Denies chest pain and Denies dyspnea Respiratory Respiratory: Denies cough and Denies dyspnea Gastrointestinal Gastrointestinal: Denies abdominal pain, Reports nausea and Reports vomiting Neurologic Neurologic: Reports headache(s), Denies loss of vision and Denies weakness Psychiatric Psychiatric: Denies depression Exam Const General: no acute distress Orientation: alert HENMT Head: normal to inspection Ears: external ears normal General nose exam: external nose normal Mouth: moist mucous membranes Eyes General: appearance normal, both eyes and all related structures Neck Neck: normal visual inspection Resp Effort & Inspection: normal respiratory effort and able to speak in complete sentences Cardio Rate: regular rate Skin General skin exam: no rashes or lesions noted Neuro General: patient alert and patient oriented x3 Extrem General: normal to inspection Psych Mental Status: mental status grossly normal Course Vital Signs Vital signs: Vital Signs Temperature 36.5 C 11/13/24 15:04 Pulse 78 11/13/24 15:04 Respiratory Rate 20 11/13/24 15:04 Blood Pressure 107/68 11/13/24 15:04 Pulse Oximetry 96 11/13/24 15:04 Temperature 36.5 C 11/13/24 15:07 Pulse 78 11/13/24 15:07 Respiratory Rate 20 11/13/24 15:07 Blood Pressure 107/68 11/13/24 15:07 Blood Pressure Position Sitting 11/13/24 15:07 Pulse Oximetry 96 11/13/24 15:07 Oxygen Delivery Method Room Air 11/13/24 15:07 Oxygen Flow Rate 0 11/13/24 15:07 Medical Decision Making 33-year-old female who has a history of migraines comes in with pain on the right side of her head similar to her prior migraines. She says the pain is not the worst of her life and is slowly worsening throughout the day. She did have 1 episode of vomit. She denies any fevers, neck stiffness. She is stable on arrival and has no motor or sensation deficits, no meningismus. Given her history I suspect recurrent migraine headache, will treat with dexamethasone, Toradol and Compazine and reassess. Patient feels significantly better and pain has resolved. Results to medications and her history suspect migraine. She is stable for discharge and will follow-up with either PCP or neurology, return precautions given. Differential Diagnosis Differential Diagnosis: Migraine, tension headache Quality:SDOH Health Related Social Needs: No Data to Display PFSH All Active Problems (Updated 11/13/24 @ 15:20 by Simone Ríos MD) Migraine headache without aura (Acute) Menstrual migraine (Acute) Partial epilepsy (Acute) Medical History History of facial trauma Dermatofibroma Tension headache Traumatic brain injury Surgical History History of facial surgery cranial facial surgery Family History Maternal Grandmother Heart disease Paternal Grandfather History of heart attack Social History Smoking/Tobacco Use Status: Never Smoking risk assessment performed?: Yes Alcohol Intake: current Alcohol Intake frequency: a few times a month Alcohol type: wine Drug use: Never Substance use type: does not use Household members: significant other Housing: house 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 Do you feel safe at home: Yes Do you feel safe in your relationship?: Yes PAWSS Have you Been Recently Intoxicated or Drunk Within the Last 30 days?: No Have you Ever Experienced Previous Episodes of Alcohol Withdrawal?: No Have you ever Experienced Withdrawal Seizures?: No Have you ever Experienced Delirium Tremens(DT)s?: No Have you ever undergone Alcohol Rehabilitation Treatment (i.e, inpt ot outpatient treatment programs)?: No Have you ever Experienced Blackouts?: No Have you ever Combined Alcohol with other Downers within the last 90 days?: No Have you ever Combined Alcohol with any other Substance of Abuse during the last 90 days?: No Positive Blood Alcohol level on Presentation? [PCS.BAL]: No Evidence of Increased Autonomic Activity (i.e. HR>120, tremor, sweating, agitation, nausea)?: No Result: 0
[2024-11-13] MEDS: Ketorolac 15 MG/ML VIAL IVP (15:29)
[2024-11-13] MEDS: Dexamethasone 10 MG/ML VIAL IVP (15:29)
[2024-11-13] MEDS: Prochlorperazine 10 MG/2 ML VIAL IVP (15:29)
[2024-11-13] MEDS: Normal Saline 1,000 ML 1000 ML IV (15:30)
[2024-11-13 16:30] VITALS: BP 99/73; PULSE 94; RESP 18; O2SAT 100
== END 2024-11-13 16:55 | disposition home or self-care (01) ==
PROVIDERS: Emergency Provider Emergency Medicine; PCP Nurse Practitioner Family
DX: G43.009 Migraine without aura, not intractable, without status migrainosus (principal)
CPT/HCPCS: 96361; 96374; 96375; 99284; J0780; J1100; J1885

== ENCOUNTER 2024-12-06 15:52 | Outpatient (REF) | payer OTHER, SELFPAY ==
--- NOTE | 2024-12-06 15:30 | PAPFT_PTH ---
PATIENT: Tonja Javed LOC: [facility] U#:[id number] AGE/SX: 33/F ROOM: RE12/06/[address]: Angela Ríos NP : 1990 BED: DIS: 12/06/2024 SPEC #: [id number] RECD: 12/06/24 18:21 STATUS: ETTA RETrey #: [id number] EMANUEL: 12/06/24 15:[address]: Angela Ríos NP DEPT: [facility] Cytology RECD BY: Galina Brar Tissues: 1 - CX/ENDOCX FOR PAP SMEARS Procedures: PAP THIN PREP/UVM Screening HPV DNA PROBE Comments: [id number] (HPV 16 & 18/45)
== END 2024-12-06 15:53 | disposition home or self-care (01) ==
LOC: LBN 15:52
PROVIDERS: PCP Nurse Practitioner Family; Visit Provider Nurse Practitioner Women's Health
DX: Z12.4 Encounter for screening for malignant neoplasm of cervix (principal)
CPT/HCPCS: 88142; 87624

== ENCOUNTER 2025-05-21 19:25 | Emergency (ER) | payer OTHER, SELFPAY ==
[2025-05-21 19:33] VITALS: BP 117/66; PULSE 73; RESP 18; TEMP 36.6; O2SAT 98
[2025-05-21 19:35] VITALS: BP 117/66; PULSE 76; RESP 18; O2SAT 98
[2025-05-21] MEDS: Lactated Ringers 1,000 ML 1000 ML IV (19:51)
[2025-05-21] MEDS: diphenhydrAMINE 50 MG/ML VIAL 25 MG IVP (19:58)
[2025-05-21] MEDS: Ketorolac 15 MG/ML VIAL IVP (20:00)
[2025-05-21] MEDS: Metoclopramide 10 MG/2 ML VIAL IVP (20:02)
--- NOTE | 2025-05-21 20:02 | W.ED.GENAD ---
Discharge Plan Disposition Patient Disposition: Home Condition: Stable Discharge Details Clinical Impression: Migraine headache without aura Primary Care Provider: Rosina Lowe ED Provider: Omayra Aguilar Home Meds and New Rx's Prescriptions: Continued sumatriptan succinate 100 mg tablet See Rx Instructions PO .COMPLEX Qty: 9 0RF Rx Instructions: take 1 tab at onset of headache; if no relief, may repeat 1 tab after at least 2 hrs; max = 2 tabs/24 hrs PO No Action amitriptyline 50 mg tablet 50 mg PO QHS Qty: 90 3RF levetiracetam 750 mg tablet 750 mg PO BID Qty: 180 3RF metoclopramide HCl [Reglan] 10 mg tablet 10 mg PO BID PRN Rx Instructions: administer 30 minutes before meals cyclobenzaprine 10 mg tablet 10 mg PO TID PRN Rx Instructions: for muscle spasm Discharge Instructions Instructions: Migraine in adults Additional Instructions: You were seen in the emergency department today for evaluation of a migraine headache. In our department you had a full physical examination performed, and received medications which improved your headache symptoms significantly. I have sent a refill of your sumatriptan to your pharmacy. Please maintain good hydration and nutrition, and please follow-up with your primary care provider in the next few days to discuss this visit and any symptoms that change, worsen, or persist. Thank you for allowing us to be part of your care. HPI General Mode of arrival: ambulatory. Date/Time Provider Initiated Documentation: 05/21/25 19:31. Limitations to Documentation: no limitations. Information obtained by: patient, family and old records reviewed. HPI Narrative: This is a 34-year-old female patient with a history of migraines, partial epilepsy, and a history of dermatofibroma and facial surgery, presenting for evaluation of a migraine. She reports that she typically gets a migraine once a week, woke up this morning with her characteristic right frontal headache and right occipital tension headache. She states that she was initially feeling okay, and ran a road race. After that she started to have worsening of her symptoms, states that she is out of her sumatriptan hand and was unable to take that medication. She reports that there are no characteristics of this headache that are atypical for her. She does have some photophobia, denies vision changes otherwise. No recent falls or injuries, denies nausea or vomiting at this time. She has no new weakness or numbness, and reports that she is currently on her menstrual period, does have a history of menstrual migraines, has not had recent unprotected intercourse to put her at risk of . Related Data Home Medications ?Medication ?Instructions ?Recorded ?Confirmed cyclobenzaprine 10 mg tablet 10 mg PO TID PRN 12/07/23 05/21/25 metoclopramide HCl 10 mg tablet 10 mg PO BID PRN 12/07/23 05/21/25 (Reglan) amitriptyline 50 mg tablet 50 mg PO QHS #90 tabs 11/03/24 05/21/25 levetiracetam 750 mg tablet 750 mg PO BID #180 tabs 11/03/24 05/21/25 sumatriptan succinate 100 mg tablet See Rx Instructions PO .COMPLEX #9 05/21/25 tabs Previous Rx's ?Medication ?Instructions ?Recorded amitriptyline 50 mg tablet 50 mg PO QHS #90 tabs 11/03/24 levetiracetam 750 mg tablet 750 mg PO BID #180 tabs 11/03/24 sumatriptan succinate 100 mg tablet See Rx Instructions PO .COMPLEX #9 05/21/25 tabs Allergies Allergy/AdvReac Type Severity Reaction Status Date / Time No Known Allergies Allergy Unverified 05/21/25 19:36 General Stated Complaint: Headache ANDER: 3 Exam Narrative Exam Narrative: Gen: awake and alert, in no apparent distress. Appears well nourished. HEENT: PERRL, EOMs full horizontally without nystagmus. External ears and nose normal, mucous membranes moist. Neck: Supple, full range of motion, no observable masses Lungs: No increased work of breathing CV: Heart with regular rate and rhythm Abdomen: Soft, nondistended, non-tender MSK: No joint swelling, no redness. Full ROM without limitation, no external traumatic findings. Skin: No rashes or lesions to visualized skin. Normal color, warm, and dry. Neuro: Cranial nerves II-XII intact and symmetrical bilaterally, with the exception of a pre-existing postsurgical left sided ptosis and limitation in EOMs up and down of the left eye. 5/5 strength in all muscle groups x4 extremities. No sensory deficits. Ambulates with steady gait. Psych: Appropriate for situation. Course Vital Signs Vital signs: Vital Signs Temperature 36.6 C 05/21/25 19:33 Pulse 73 05/21/25 19:33 Respiratory Rate 18 05/21/25 19:33 Blood Pressure 117/66 05/21/25 19:33 Pulse Oximetry 98 05/21/25 19:33 Temperature 36.6 C 05/21/25 19:33 Temperature Source Oral 05/21/25 19:33 Pulse 76 05/21/25 19:35 Respiratory Rate 18 05/21/25 19:35 Blood Pressure 117/66 05/21/25 19:35 Pulse Oximetry 98 05/21/25 19:35 Oxygen Delivery Method Room Air 05/21/25 19:35 Pain Level 4 05/21/25 19:35 Medical Decision Making This is a 34-year-old female patient presenting for evaluation of a migraine headache. Reassuringly, this episode is quite characteristic of her baseline headaches, making primary headache disorders including migraine headache and tension headache most likely. I do not note any history of trauma or new focal neurodeficits to increase my concern for intracranial hemorrhage, nor stroke. No concerning symptoms to suggest intracranial mass effect. The patient's brief duration of symptoms and lack of nausea or vomiting reassures me against severe dehydration, metabolic or electrolyte derangement. Given the reassuring exam and classic history we will proceed with migraine cocktail to include lactated Ringer's, Toradol, Reglan, and Benadryl. I do not see an indication to proceed with laboratory studies or advanced imaging at this time. - On reevaluation, the patient has had improvement in her headache and feels ready for discharge. I provided her with a refill on her sumatriptan prescription, and at this time, the patient has had a full medical evaluation and is safe for discharge to home. They are hemodynamically stable, ambulatory, and tolerating PO. They are understanding of the follow-up plan and return precautions. They left our facility without incident. Omayra Aguilar MD [facility] All Active Problems (Updated 05/21/25 @ 21:22 by Omayra Aguilar MD) Migraine headache without aura (Acute) Menstrual migraine (Acute) Partial epilepsy (Acute) Medical History History of facial trauma Dermatofibroma Tension headache Traumatic brain injury Surgical History History of facial surgery cranial facial surgery Family History Maternal Grandmother Heart disease Paternal Grandfather History of heart attack Social History (Updated 12/06/24 @ 15:31 by Cecy Lakhani) Smoking/Tobacco Use Status: Never Second Hand Exposure: No Smoking risk assessment performed?: Yes Alcohol Intake: current Alcohol Intake frequency: a few times a month Alcohol type: wine Drug use: Never Substance use type: does not use Household members: significant other Housing: house 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
[2025-05-21 21:35] VITALS: BP 115/72; PULSE 87; RESP 18; O2SAT 98
== END 2025-05-21 21:36 | disposition home or self-care (01) ==
LOC: ER 21:30
PROVIDERS: Emergency Provider Emergency Medicine; PCP Nurse Practitioner Family
DX: G43.909 Migraine, unspecified, not intractable, without status migrainosus (principal)
CPT/HCPCS: 99284 ×2; 96374; 96375; 96361; J1200; J1885; J2765

== ENCOUNTER 2025-05-28 15:53 | Emergency (ER) | payer OTHER, SELFPAY ==
[2025-05-28 16:00] VITALS: BP 122/82; PULSE 80; RESP 18; TEMP 37; O2SAT 98
[2025-05-28 16:42] VITALS: BP 122/82; PULSE 80; RESP 18; TEMP 37; O2SAT 98
[2025-05-28] MEDS: Prochlorperazine 10 MG/2 ML VIAL IVP (16:43)
[2025-05-28] MEDS: Ketorolac 15 MG/ML VIAL 7.5 MG IVP (16:43)
[2025-05-28] MEDS: Normal Saline 1,000 ML 1000 ML IV (16:43)
[2025-05-28 17:33] VITALS: BP 116/71; PULSE 82; TEMP 36.4; O2SAT 100
--- NOTE | 2025-05-28 22:04 | W.ED.GENAD ---
Discharge Plan Disposition Patient Disposition: Home Condition: Stable Discharge Details Clinical Impression: Migraine headache without aura Primary Care Provider: Rosina Lowe ED Provider: Galina Acosta Home Meds and New Rx's Prescriptions: Continued amitriptyline 50 mg tablet 50 mg PO QHS Qty: 90 3RF levetiracetam 750 mg tablet 750 mg PO BID Qty: 180 3RF metoclopramide HCl [Reglan] 10 mg tablet 10 mg PO BID PRN Rx Instructions: administer 30 minutes before meals cyclobenzaprine 10 mg tablet 10 mg PO TID PRN Rx Instructions: for muscle spasm sumatriptan succinate 100 mg tablet See Rx Instructions PO .COMPLEX Qty: 9 0RF Rx Instructions: take 1 tab at onset of headache; if no relief, may repeat 1 tab after at least 2 hrs; max = 2 tabs/24 hrs PO Discharge Instructions Instructions: Headache, Adult ED Additional Instructions: Please follow-up with neurology If your headache returns, you have fever, or any significant change in migraine pattern, please return immediately for reassessment Follow-up with PCP this week as well Referrals: Rosina Lowe NP [Primary Care Provider, Medicine] Discharge Data Discharge Date/Time-TO BE ENTERED AT DEPARTURE: 05/28/25 17:47 HPI General Date/Time Provider Initiated Documentation: 05/28/25 16:03. HPI Narrative: This 34-year-old female presents with report of headache, history of several migraines in the past week for which she has had nausea and vomiting. States she was unable to take her meds today secondary to vomiting denies any stiff neck or change in headache. Denies any chest pain or shortness of breath. Denies any chance of Related Data Home Medications ?Medication ?Instructions ?Recorded ?Confirmed cyclobenzaprine 10 mg tablet 10 mg PO TID PRN 12/07/23 05/28/25 metoclopramide HCl 10 mg tablet 10 mg PO BID PRN 12/07/23 05/28/25 (Reglan) amitriptyline 50 mg tablet 50 mg PO QHS #90 tabs 11/03/24 05/28/25 levetiracetam 750 mg tablet 750 mg PO BID #180 tabs 11/03/24 05/28/25 sumatriptan succinate 100 mg tablet See Rx Instructions PO .COMPLEX #9 05/21/25 05/28/25 tabs Previous Rx's ?Medication ?Instructions ?Recorded amitriptyline 50 mg tablet 50 mg PO QHS #90 tabs 11/03/24 levetiracetam 750 mg tablet 750 mg PO BID #180 tabs 11/03/24 sumatriptan succinate 100 mg tablet See Rx Instructions PO .COMPLEX #9 05/21/25 tabs Allergies Allergy/AdvReac Type Severity Reaction Status Date / Time No Known Allergies Allergy Unverified 05/28/25 16:04 General Stated Complaint: Headache ANDER: 3 Course Vital Signs Vital signs: Vital Signs Temperature 37.0 C 05/28/25 16:00 Pulse 80 05/28/25 16:00 Respiratory Rate 18 05/28/25 16:00 Blood Pressure 122/82 05/28/25 16:00 Pulse Oximetry 98 05/28/25 16:00 Temperature 36.4 C L 05/28/25 17:33 Temperature Source Tympanic 05/28/25 17:33 Pulse 82 05/28/25 17:33 Respiratory Rate 18 05/28/25 16:42 Blood Pressure 116/71 05/28/25 17:33 Blood Pressure Mean 86 05/28/25 17:33 Blood Pressure Position Sitting 05/28/25 16:42 Pulse Oximetry 100 05/28/25 17:33 Oxygen Delivery Method Room Air 05/28/25 17:33 Oxygen Flow Rate 0 05/28/25 17:33 Pain Level 0 05/28/25 17:33 Medical Decision Making Patient presents with headache typical migraine for patient. Given migraine cocktail reports symptomatic improvement stable for [facility] All Active Problems (Updated 05/28/25 @ 17:27 by THIEN Avelar) Migraine headache without aura (Acute) Menstrual migraine (Acute) Partial epilepsy (Acute) Medical History History of facial trauma Dermatofibroma Tension headache Traumatic brain injury Surgical History History of facial surgery cranial facial surgery Family History Maternal Grandmother Heart disease Paternal Grandfather History of heart attack Social History (Updated 12/06/24 @ 15:31 by Cecy Lakhani) Smoking/Tobacco Use Status: Never Second Hand Exposure: No Smoking risk assessment performed?: Yes Alcohol Intake: current Alcohol Intake frequency: a few times a month Alcohol type: wine Drug use: Never Substance use type: does not use Household members: significant other Housing: house 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 PAWSS Have you Been Recently Intoxicated or Drunk Within the Last 30 days?: No Have you Ever Experienced Previous Episodes of Alcohol Withdrawal?: No Have you ever Experienced Withdrawal Seizures?: No Have you ever Experienced Delirium Tremens(DT)s?: No Have you ever undergone Alcohol Rehabilitation Treatment (i.e, inpt ot outpatient treatment programs)?: No Have you ever Experienced Blackouts?: No Have you ever Combined Alcohol with other Downers within the last 90 days?: No Have you ever Combined Alcohol with any other Substance of Abuse during the last 90 days?: No Positive Blood Alcohol level on Presentation? [PCS.BAL]: No Evidence of Increased Autonomic Activity (i.e. HR>120, tremor, sweating, agitation, nausea)?: No Result: 0
== END 2025-05-28 17:47 | disposition home or self-care (01) ==
LOC: ER 17:46
PROVIDERS: Emergency Provider Physician Assistant; PCP Nurse Practitioner Family
DX: G43.009 Migraine without aura, not intractable, without status migrainosus (principal); R11.10 Vomiting, unspecified
CPT/HCPCS: 96374; 96375; 99283; J0780; J1885

== ENCOUNTER 2025-06-22 17:04 | Emergency (ER) | payer OTHER, SELFPAY ==
[2025-06-22 17:11] VITALS: BP 126/81; PULSE 92; RESP 16; TEMP 36.6; O2SAT 98
[2025-06-22 17:14] VITALS: BP 126/81; PULSE 92; RESP 16; TEMP 36.6; O2SAT 98
--- NOTE | 2025-06-22 18:09 | W.ED.GENAD ---
Discharge Plan Disposition Patient Disposition: Home Condition: Stable Discharge Details Clinical Impression: Migraine headache without aura, , Elevated transaminase level Primary Care Provider: Rosina Lowe ED Provider: Omayra Aguilar Home Meds and New Rx's Prescriptions: Continued sumatriptan succinate 100 mg tablet See Rx Instructions PO .COMPLEX Qty: 9 0RF Rx Instructions: take 1 tab at onset of headache; if no relief, may repeat 1 tab after at least 2 hrs; max = 2 tabs/24 hrs PO No Action amitriptyline 50 mg tablet 50 mg PO QHS Qty: 90 3RF levetiracetam 750 mg tablet 750 mg PO BID Qty: 180 3RF cyclobenzaprine 10 mg tablet 10 mg PO TID PRN Rx Instructions: for muscle spasm Discharge Instructions Instructions: - The Second Month, Headache, Adult ED Additional Instructions: You were seen in the emergency department today for evaluation of a migraine. In our department had a full physical examination performed, and your test was noted to be positive. You did have an ultrasound that shows a gestational sac in your uterus consistent with an early of approximately 7 weeks based on your last menstrual period. You received medications which are safe during to treat your migraine. As we discussed, your home sumatriptan is a medication that is considered appropriate in when other alternatives are not successful in managing your headache. There is a slight chance of change in blood flow and supply to your placenta and you will need to be monitored for preeclampsia and other changes throughout your due to your migraines. I have provided you with a referral to establish with the [facility] here, and a refill of your sumatriptan hand. Please follow-up with your primary care provider in the next few days to discuss this visit and any symptoms that change, worsen, or persist. Thank you for allowing us to be part of your care. Stand Alone Forms: Portal Information Referrals: [facility] [OTHER, [facility]] Leeann Giron MD [ [facility] STAFF PHYSICIAN, Obstetrics] HPI General Mode of arrival: ambulatory. Date/Time Provider Initiated Documentation: 06/22/25 17:09. Limitations to Documentation: no limitations. Information obtained by: patient, family and old records reviewed. HPI Narrative: This is a 34-year-old female patient with a past medical history significant for frequent migraines, partial epilepsy, presenting for evaluation of migraine headache. The patient reports that she started to have a headache yesterday, was able to work today but her symptoms have worsened. She is experiencing photophobia and nausea, states that this headache is located in the back of her head and is very typical for her to normal migraines. She only has 1 sumatriptan left, had a refill from this provider in the emergency department 1 month ago. She is currently experiencing difficulty in transitioning to a new neurologist as the neurologist here is leaving. She just completed paperwork to establish with a new primary care provider. The patient reports no other recent changes to her health, though she does incidentally note that she missed her last period. She and her partner are currently not utilizing any control methods, states that they are not actively pursuing but would be desired. No vaginal bleeding or abdominal discomfort, no recent trauma or injuries. Related Data Home Medications Medication Instructions Recorded Confirmed cyclobenzaprine 10 mg tablet 10 mg PO TID PRN 12/07/23 06/22/25 amitriptyline 50 mg tablet 50 mg PO QHS #90 tabs 11/03/24 06/22/25 levetiracetam 750 mg tablet 750 mg PO BID #180 tabs 11/03/24 06/22/25 sumatriptan succinate 100 mg tablet See Rx Instructions PO .COMPLEX #9 06/22/25 tabs Previous Rx's Medication Instructions Recorded amitriptyline 50 mg tablet 50 mg PO QHS #90 tabs 11/03/24 levetiracetam 750 mg tablet 750 mg PO BID #180 tabs 11/03/24 sumatriptan succinate 100 mg tablet See Rx Instructions PO .COMPLEX #9 06/22/25 tabs Allergies Allergy/AdvReac Type Severity Reaction Status Date / Time No Known Allergies Allergy Unverified 06/22/25 17:13 General Stated Complaint: Headache ANDER: 4 Exam Narrative Exam Narrative: Gen: awake and alert, in no apparent distress. Appears well nourished. HEENT: PERRL, EOMs full and without nystagmus. External ears and nose normal, mucous membranes moist. Neck: Supple, full range of motion, no observable masses Lungs: No increased work of breathing CV: Heart with regular rate and rhythm, heart with regular rate and rhythm Abdomen: Soft, nondistended, non-tender to palpation. No rigidity, rebound tenderness, or guarding. MSK: No joint swelling, no redness. Full ROM without limitation, no external traumatic findings. Skin: No rashes or lesions to visualized skin. Normal color, warm, and dry. Neuro: Cranial nerves II-XII intact and within the typical range for this patient in the context of her posttraumatic facial changes. 5/5 strength in all muscle groups x4 extremities. No sensory deficits. Ambulates with steady gait. Psych: Appropriate for situation. Course Vital Signs Vital signs: Vital Signs Temperature 36.6 C 06/22/25 17:11 Pulse 92 H 06/22/25 17:11 Respiratory Rate 16 06/22/25 17:11 Blood Pressure 126/81 06/22/25 17:11 Pulse Oximetry 98 06/22/25 17:11 Temperature 36.6 C 06/22/25 17:14 Pulse 92 H 06/22/25 17:14 Respiratory Rate 16 06/22/25 17:14 Blood Pressure 126/81 06/22/25 17:14 Pulse Oximetry 98 06/22/25 17:14 Pain Level 3 06/22/25 17:14 Lab/Test Results Lab/Test Results: POC- Test(urine) Positive Medical Decision Making This is a 34-year-old female patient presenting for evaluation of a migraine. Differential includes but is not limited to migraine headache, certainly considered other primary headache disorders including tension headache, less consistent with cluster. There was no thunderclap quality to the headache nor neurodeficits to suggest subarachnoid hemorrhage, press or RCVS. No trauma to suggest intracranial hemorrhage or skull fracture. The patient has not had increased seizure frequency, have a low concern for intracranial mass effect. Finally, in the context of a mixed period, I certainly considered early versus anovulatory cycles. We obtained a [id number] screen prior to providing the patient with migraine medications, which was found to be positive. We will obtain labs to include CBC, CMP, magnesium, and beta quant. I will provide the patient with Tylenol, as well as Benadryl, Reglan, and lactated Ringer's after verifying safety of these medications. -I reviewed the patient's laboratory studies, which note no leukocytosis, anemia, or thrombocytopenia. Chemistry panel reveals no electrolyte derangements or evidence of kidney dysfunction, a very mild transaminitis is appreciated which is new from prior. The levels are not so high that I am concerned for acute hepatitis, Tylenol toxicity, etc. Beta quant elevated to 6800. Bedside ultrasound performed and does show a small gestational sac with a pole measuring 7.1 weeks, consistent with her last menstrual period date in mid May. The patient's headache unfortunately did not improve with the initial rounds of medication, we did shared risks and benefits decision making conversation regarding the sumatriptan hand. Overall, this is a medication considered to be appropriate in when other first-line medications have failed to manage her headaches. This was provided, as well as a intravenous bolus of magnesium. This was successful in abolishing her headache. They refill of her prescription of sumatriptan was sent to her pharmacy and a referral to [facility] was placed. At this time, the patient has had a full medical evaluation and is safe for discharge to home. They are hemodynamically stable, ambulatory, and tolerating PO. They are understanding of the follow-up plan and return precautions. They left our facility without incident. Omayra Aguilar MD PFSH All Active Problems (Updated 06/22/25 @ 21:00 by Omayra Aguilar MD) Elevated transaminase level (Acute) (Acute) Migraine headache without aura (Acute) Menstrual migraine (Acute) Partial epilepsy (Acute) Medical History History of facial trauma Dermatofibroma Tension headache Traumatic brain injury Surgical History History of facial surgery cranial facial surgery Family History Maternal Grandmother Heart disease Paternal Grandfather History of heart attack Social History (Updated 12/06/24 @ 15:31 by Cecy Lakhani RN) Smoking/Tobacco Use Status: Never Second Hand Exposure: No Smoking risk assessment performed?: Yes Alcohol Intake: current Alcohol Intake frequency: a few times a month Alcohol type: wine Drug use: Never Substance use type: does not use Household members: significant other Housing: house 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 POCUS Exam (ED) Limited OB Exam DATE OF EXAM:: 06/22/25 TIME OF EXAM:: 18:56 PROVIDER THAT PERFORMED THE STUDY: Omayra Aguilar Type of Exam: Pelvic OB Trans Abdominal REASON FOR EXAM: other indication: Positive HCG VISUALIZED STRUCTURES: Poll, Gestational sac and Uterus PERTINENT FINDINGS/IMPRESSION: poll; No free fluid Exam Complete.
[2025-06-22 18:22] LABS: Abs Immature Grans 0.02 10^3/uL (0.0-0.06); HCT 37.7 % (36.0-46.0); HGB 12.8 g/dL (11.2-15.7); Immature Grans % 0.2 %; MCH 31.6 pg (27.0-33.0); MCHC 34.0 % (32.0-36.0); MCV 93 fL (80-95); MPV 9.6 fL (8.0-11.0); Platelet Count 284 10^3/uL (130-400); RBC 4.05 10^6/uL (3.93-5.22); RDW 11.7 % (11.7-14.6); RDW-SD 40.1 fL; WBC 9.86 10^3/uL (4.4-10.8)
[2025-06-22] MEDS: Lactated Ringers 1,000 ML 1000 ML IV (18:33)
[2025-06-22 18:34] LABS: Magnesium 2.0 mg/dL (1.6-2.6)
[2025-06-22] MEDS: diphenhydrAMINE 50 MG/ML VIAL 25 MG IVP (18:34)
[2025-06-22] MEDS: ACETAMINOPHEN 1,000 MG/100 ML BAG 400 MG IVPB (18:34)
[2025-06-22] MEDS: Metoclopramide 10 MG/2 ML VIAL IVP (18:35)
[2025-06-22 18:36] LABS: ALT 60 U/L (10-49); AST 44 U/L (<34); Albumin 4.7 g/dL (3.4-5.0); Alkaline Phosphatase 59 U/L (46-116); Anion Gap 9.9 mmol/L (3-11); BUN 9 mg/dL (9-23); Bilirubin, Total 0.40 mg/dL (0.2-1.2); CO2 24.1 mmol/L (20.0-31.0); Calcium 9.0 mg/dL (8.3-10.6); Chloride 104 mmol/L (98-107); Glucose 93 mg/dL (74-106); Potassium 3.6 mmol/L (3.5-5.1); Sodium 138 mmol/L (136-145); Total Protein 7.9 g/dL (5.7-8.2)
[2025-06-22 18:52] LABS: HCG Quant, Pregnancy 6860 mIU/mL (1.5-4.2)
[2025-06-22] MEDS: SUMAtriptan 50 MG TAB 100 MG PO (20:15)
[2025-06-22] MEDS: MAGNESIUM SULFATE 2 GM/50 ML BAG IV_INF (20:16)
[2025-06-22 20:23] VITALS: BP 120/81; PULSE 105; RESP 18; O2SAT 100
== END 2025-06-22 21:07 | disposition home or self-care (01) ==
PROVIDERS: Emergency Provider Emergency Medicine; PCP Nurse Practitioner Family
DX: O26.891 Other specified pregnancy related conditions, first trimester (principal); G43.009 Migraine without aura, not intractable, without status migrainosus; Z3A.01 Less than 8 weeks gestation of pregnancy
CPT/HCPCS: 76815; 80053; 81025; 96361; 96365; 96367; 96375; 99284; 83735; 84702; 85025; J0131; J1200; J2765; J3475

== ENCOUNTER 2025-07-09 18:22 | Emergency (ER) | payer OTHER, SELFPAY ==
[2025-07-09 18:26] VITALS: BP 115/77; PULSE 90; RESP 18; TEMP 36.8; O2SAT 96
--- NOTE | 2025-07-09 18:56 | W.ED.GENAD ---
Discharge Plan Disposition Patient Disposition: Home Condition: Good Discharge Details Clinical Impression: Migraine headache without aura, Elevated transaminase level Primary Care Provider: Rosina Lowe ED Provider: Yandy Alvarez Home Meds and New Rx's Prescriptions: No Action amitriptyline 50 mg tablet 50 mg PO QHS Qty: 90 3RF levetiracetam 750 mg tablet 750 mg PO BID Qty: 180 3RF cyclobenzaprine 10 mg tablet 10 mg PO TID PRN Rx Instructions: for muscle spasm sumatriptan succinate 100 mg tablet See Rx Instructions PO .COMPLEX Qty: 9 0RF Rx Instructions: take 1 tab at onset of headache; if no relief, may repeat 1 tab after at least 2 hrs; max = 2 tabs/24 hrs PO Discharge Instructions Additional Instructions: Please follow-up with your neurologist on the as scheduled. Your workup today was reassuring. You responded well to the medications provided that are safe in . Please continue to take the sumatriptan hand when you are able to for migraines. Return to emergency care if develop new severe headaches, new concerning symptoms with headache, confusion/gait problems/uncontrollable vomiting/weakness, fevers associated with headache and neck pain, or if you are very worried and need to be checked again immediately Stand Alone Forms: Portal Information HPI General Date/Time Provider Initiated Documentation: 07/09/25 18:24. HPI Narrative: Tonja is a 34-year-old female A0 currently approx 8 weeks who presents to the emergency department today for evaluation of migraine. She reports that she usually has migraine with aura, however sometimes she does not. Today she developed sudden onset of nausea/vomiting with gradually worsening right sided aching headache. This is typical for her migraine symptoms. This is accompanied by mild neck discomfort and persistent nausea. Denies fever/chills, vision changes, confusion, dizziness, preceding viral symptoms such as congestion/sore throat/cough, chest pain, difficulty breathing, abdominal pain, change in bowel or bladder function, extremity weakness or numbness. Past medical history remarkable for TBI, partial epilepsy (on Keppra, no seizures for 10 years). Related Data Home Medications ?Medication ?Instructions ?Recorded ?Confirmed cyclobenzaprine 10 mg tablet 10 mg PO TID PRN 12/07/23 07/09/25 amitriptyline 50 mg tablet 50 mg PO QHS #90 tabs 11/03/24 07/09/25 levetiracetam 750 mg tablet 750 mg PO BID #180 tabs 11/03/24 07/09/25 sumatriptan succinate 100 mg tablet See Rx Instructions PO .COMPLEX #9 06/22/25 07/09/25 tabs Previous Rx's ?Medication ?Instructions ?Recorded amitriptyline 50 mg tablet 50 mg PO QHS #90 tabs 11/03/24 levetiracetam 750 mg tablet 750 mg PO BID #180 tabs 11/03/24 sumatriptan succinate 100 mg tablet See Rx Instructions PO .COMPLEX #9 06/22/25 tabs Allergies Allergy/AdvReac Type Severity Reaction Status Date / Time No Known Allergies Allergy Unverified 07/09/25 18:35 General Stated Complaint: Headache ANDER: 3 Exam Const General: cooperative, healthy appearing, comfortable, no acute distress, well developed and well groomed Nutritional Appearance: average body habitus and well nourished Orientation: alert and oriented x3 [facility] Head: normal to inspection, normocephalic and atraumatic Ears: hearing grossly normal bilaterally General nose exam: external nose normal Face and sinus: normal facial exam Resp Effort & Inspection: normal respiratory effort and able to speak in complete sentences Auscultation: clear to auscultation bilaterally Cardio Rate: regular rate Rhythm: regular rhythm GI Inspection: normal to inspection and non-distended Palpation: soft, not firm, no guarding and nontender Skin General skin exam: no rashes or lesions noted Neuro General: patient alert, patient oriented x3, gait normal, tone normal, moves all extremities, no focal motor deficits and CN's II-XI intact bilaterally Cranial Nerves: CN's II-XI intact bilaterally, PERRL, EOM intact bilaterally, no nystagmus, facial strength normal, able to rotate head bilaterally and able to elevate shoulders bilaterally Cognition: normal cognition Speech: speech normal Gait: normal gait Motor: muscle tone normal throughout and strength 5/5 throughout Sensory Exam: no sensory deficits noted Coordination: [id number] test normal, tandem gait normal, Does not sway with eyes open and rapid alternating movement UE normal Course Vital Signs Vital signs: Vital Signs Temperature 36.8 C 07/09/25 18:26 Pulse 90 07/09/25 18:26 Respiratory Rate 18 07/09/25 18: Blood Pressure 115/77 07/09/25 18:26 Pulse Oximetry 96 07/09/25 18: Temperature 36.8 C 07/09/25 18: Temperature Source Oral 07/09/25 18: Pulse 90 07/09/25 18: Respiratory Rate 18 07/09/25 18:26 Blood Pressure 115/77 07/09/25 18: Blood Pressure Position Sitting 07/09/25 18: Pulse Oximetry 96 07/09/25 18: Oxygen Delivery Method Room Air 07/09/25 18: Oxygen Flow Rate 0 07/09/25 18: Medical Decision Making Tonja is a 34-year-old female A0 currently approx 8 weeks who presents to the emergency department today for evaluation of migraine. She reports that she usually has migraine with aura, however sometimes she does not. Today she developed sudden onset of nausea/vomiting with gradually worsening right sided aching headache. This is typical for her migraine symptoms. This is accompanied by mild neck discomfort and persistent nausea. Denies fever/chills, vision changes, confusion, dizziness, preceding viral symptoms such as congestion/sore throat/cough, chest pain, difficulty breathing, abdominal pain, change in bowel or bladder function, extremity weakness or numbness. Past medical history remarkable for TBI, partial epilepsy (on Keppra, no seizures for 10 years). Physical exam very reassuring. Tonja is alert and oriented, in no acute distress. Moist mucous membranes. Cranial nerves II through XII intact as tested. Normal finger to finger, finger-nose, Romberg, gait, tandem gait, rapid alternating movements. Muscle strength 5/5 to upper and lower extremities. History and presentation consistent with migraine headache, she says that there are no new features that are concerning to today's headache. No focal neurodeficits or thunderclap quality indicating need for diagnostic imaging or further evaluation. I independently interpreted the following tests CBC no mild leukocytosis, consistent with stress to margination. Magnesium and CMP unremarkable, mildly elevated transaminases as noted previously. While in the emergency department Tonja received Benadryl, Reglan, magnesium, and IV fluids with full resolution of symptoms. Overall workup today reassuring. Patient has neurologist follow-up on the . Reviewed discharge instruction with patient and her , including red flags indicate need for return to emergency care, symptomatic management, and importance of establishing care with PCP. She voices agreement with plan of care PFSH All Active Problems (Updated 07/09/25 @ 21:24 by Yandy Carter) Elevated transaminase level (Acute) (Acute) Migraine headache without aura (Acute) Menstrual migraine (Acute) Partial epilepsy (Acute) Medical History History of facial trauma Dermatofibroma Tension headache Traumatic brain injury Surgical History History of facial surgery cranial facial surgery Family History Maternal Grandmother Heart disease Paternal Grandfather History of heart attack Social History (Updated 12/06/24 @ 15:31 by Cecy Lakhani RN) Smoking/Tobacco Use Status: Never Second Hand Exposure: No Smoking risk assessment performed?: Yes Alcohol Intake: current Alcohol Intake frequency: a few times a month Alcohol type: wine Drug use: Never Substance use type: does not use Household members: significant other Housing: house 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
[2025-07-09] MEDS: Metoclopramide 10 MG/2 ML VIAL IVP (19:28)
[2025-07-09] MEDS: diphenhydrAMINE 50 MG/ML VIAL 25 MG IVP (19:28)
[2025-07-09 19:37] LABS: Abs Immature Grans 0.04 10^3/uL (0.0-0.06); HCT 37.4 % (36.0-46.0); HGB 12.9 g/dL (11.2-15.7); Immature Grans % 0.3 %; MCH 32.2 pg (27.0-33.0); MCHC 34.5 % (32.0-36.0); MCV 93 fL (80-95); MPV 9.9 fL (8.0-11.0); Platelet Count 278 10^3/uL (130-400); RBC 4.01 10^6/uL (3.93-5.22); RDW 11.7 % (11.7-14.6); RDW-SD 39.5 fL; WBC 11.81 10^3/uL (4.4-10.8)
[2025-07-09] MEDS: Lactated Ringers 1,000 ML 1000 ML IV (20:02)
[2025-07-09] MEDS: ACETAMINOPHEN 1,000 MG/100 ML BAG 400 MG IVPB (20:11)
[2025-07-09 20:30] LABS: Magnesium 1.9 mg/dL (1.6-2.6)
[2025-07-09 20:32] LABS: ALT 62 U/L (10-49); AST 36 U/L (<34); Albumin 4.3 g/dL (3.2-5.0); Alkaline Phosphatase 53 U/L (46-116); Anion Gap 9.3 mmol/L (3-11); BUN 10 mg/dL (9-23); Bilirubin, Total 0.30 mg/dL (0.2-1.2); CO2 24.7 mmol/L (20.0-31.0); Calcium 8.4 mg/dL (8.3-10.6); Chloride 106 mmol/L (98-107); Glucose 89 mg/dL (74-106); Potassium 3.5 mmol/L (3.5-5.1); Sodium 140 mmol/L (136-145); Total Protein 7.1 g/dL (5.7-8.2)
[2025-07-09] MEDS: MAGNESIUM SULFATE 2 GM/50 ML BAG IV_INF (21:00)
[2025-07-09 22:39] VITALS: BP 107/78; PULSE 88; RESP 19; TEMP 35.8; O2SAT 100
== END 2025-07-09 22:40 | disposition home or self-care (01) ==
PROVIDERS: Emergency Provider Nurse Practitioner Family; PCP Nurse Practitioner Family
DX: G43.019 Migraine without aura, intractable, without status migrainosus (principal); R79.89 Other specified abnormal findings of blood chemistry; O99.891 Other specified diseases and conditions complicating pregnancy; D72.829 Elevated white blood cell count, unspecified
CPT/HCPCS: 99283; 99284; 36415; 96375; 80053; 96365; 96366; 96367; 83735; 85025; J0131; J1200; J2765; J3475

== ENCOUNTER 2025-07-23 15:10 | Emergency (ER) | payer OTHER, SELFPAY ==
[2025-07-23 15:18] VITALS: BP 116/78; PULSE 83; RESP 14; TEMP 36.6; O2SAT 97
[2025-07-23 15:26] VITALS: BP 116/78; PULSE 83; RESP 14; TEMP 36.6; O2SAT 97
[2025-07-23] MEDS: ACETAMINOPHEN 500 MG/50 ML BAG 200 MG IVPB (17:35)
[2025-07-23] MEDS: Normal Saline 1,000 ML 1000 ML IV (17:36)
[2025-07-23] MEDS: Metoclopramide 10 MG/2 ML VIAL IVP (17:36)
[2025-07-23 17:50] LABS: Magnesium 2.1 mg/dL (1.6-2.6)
[2025-07-23 17:51] LABS: ALT 27 U/L (10-49); AST 21 U/L (<34); Albumin 4.4 g/dL (3.2-5.0); Alkaline Phosphatase 56 U/L (46-116); Anion Gap 8.6 mmol/L (3-11); BUN 9 mg/dL (9-23); Bilirubin, Total 0.4 mg/dL (0.2-1.2); CO2 23.4 mmol/L (20.0-31.0); Calcium 8.9 mg/dL (8.3-10.6); Chloride 107 mmol/L (98-107); Glucose 93 mg/dL (74-106); Potassium 4.1 mmol/L (3.5-5.1); Sodium 139 mmol/L (136-145); Total Protein 7.6 g/dL (5.7-8.2)
[2025-07-23 18:15] VITALS: BP 111/75; PULSE 109; RESP 16; TEMP 36.9; O2SAT 100
--- NOTE | 2025-07-24 17:43 | W.ED.GENAD ---
Discharge Plan Disposition Patient Disposition: Home Condition: Stable Discharge Details Clinical Impression: Headache, Nausea & vomiting, Primary Care Provider: Dwight Oreilly ED Provider: Galina Acosta Home Meds and New Rx's Prescriptions: Continued amitriptyline 50 mg tablet 50 mg PO QHS Qty: 90 3RF levetiracetam 750 mg tablet 750 mg PO BID Qty: 180 3RF sumatriptan succinate 100 mg tablet See Rx Instructions PO .COMPLEX Qty: 9 0RF Rx Instructions: take 1 tab at onset of headache; if no relief, may repeat 1 tab after at least 2 hrs; max = 2 tabs/24 hrs PO Discharge Instructions Instructions: Morning Sickness (DC) Additional Instructions: Please be sure to stay hydrated with at least 8,8 ounce glasses of water daily You may wish to take another dose of Reglan tonight before you go to bed You may take Tylenol as needed for discomfort Please return should you develop return of vomiting, headache, or should any new concerns arise Your liver enzymes are within normal limits today which is reassuring Stand Alone Forms: Portal Information Referrals: Dwight Oreilly, S[employer] ST[employer]ING MACHINE OPERATOR [Primary Care Provider, Medicine] Discharge Data Discharge Date/Time-TO BE ENTERED AT DEPARTURE: 07/23/25 18:31 HPI General Date/Time Provider Initiated Documentation: 07/23/25 15:37. HPI Narrative: This 34-year-old female presents 9 weeks with headache. History of migraine headaches not significantly changed from prior. Did take sumatriptan prior to arrival. Largest concern is that she has been nauseous she vomited approximately 13 times per denies any stiff neck or risk of carbon monoxide exposure. Denies any vaginal bleeding or abdominal pain. Denies any blurred vision strength or sensation changes, or any other focal neurological findings. Related Data Home Medications ?Medication ?Instructions ?Recorded ?Confirmed amitriptyline 50 mg tablet 50 mg PO QHS #90 tabs 11/03/24 07/23/25 levetiracetam 750 mg tablet 750 mg PO BID #180 tabs 11/03/24 07/23/25 sumatriptan succinate 100 mg tablet See Rx Instructions PO .COMPLEX #9 06/22/25 07/23/25 tabs Previous Rx's ?Medication ?Instructions ?Recorded amitriptyline 50 mg tablet 50 mg PO QHS #90 tabs 11/03/24 levetiracetam 750 mg tablet 750 mg PO BID #180 tabs 11/03/24 sumatriptan succinate 100 mg tablet See Rx Instructions PO .COMPLEX #9 06/22/25 tabs Allergies Allergy/AdvReac Type Severity Reaction Status Date / Time No Known Allergies Allergy Unverified 07/23/25 15:24 General Stated Complaint: Headache ANDER: 3 Exam Narrative Exam Narrative: Alert and oriented 34-year-old female no acute distress, pupils equal round reactive to light and accommodation no meningismus, cranial nerves II through XII intact, no respiratory distress cardiac rate rhythm regular alert and oriented x 4 ambulatory steady gait nontender abdominal exam Course Vital Signs Vital signs: Vital Signs Temperature 36.6 C 07/23/25 15:18 Pulse 83 07/23/25 15:18 Respiratory Rate 14 07/23/25 15:18 Blood Pressure 116/78 07/23/25 15:18 Pulse Oximetry 97 07/23/25 15:18 Temperature 36.9 C 07/23/25 18:15 Temperature Source Temporal Artery Scan 07/23/25 18:15 Pulse 109 H 07/23/25 18:15 Respiratory Rate 16 07/23/25 18:15 Blood Pressure 111/75 07/23/25 18:15 Blood Pressure Mean 87 07/23/25 18:15 Blood Pressure Position Sitting 07/23/25 15:26 Pulse Oximetry 100 07/23/25 18:15 Oxygen Delivery Method Room Air 07/23/25 18:15 Oxygen Flow Rate 0 07/23/25 18:15 Pain Level 2 07/23/25 17:21 Lab/Test Results Lab/Test Results: Laboratory Tests Range/Units 07/23/25 17:27 Sodium (136-145) mmol/L 139 Potassium (3.5-5.1) mmol/L 4.1 Chloride (98-107) mmol/L 107 Carbon Dioxide (20.0-31.0) mmol/L 23.4 Anion Gap (3-11) mmol/L 8.6 BUN (9-23) mg/dL 9 Creatinine (0.55-1.02) mg/dL 0.51 L Est GFR (CKD-EPI 2020) (mL/min/1.73m2) 136.02 Glucose (74-106) mg/dL 93 Calcium (8.3-10.6) mg/dL 8.9 Magnesium (1.6-2.6) mg/dL 2.1 Total Bilirubin (0.2-1.2) mg/dL 0.4 AST (<34) U/L 21 ALT (10-49) U/L 27 Alkaline Phosphatase (46-116) U/L 56 Total Protein (5.7-8.2) g/dL 7.6 Albumin (3.2-5.0) g/dL 4.4 Medical Decision Making Assessment and plan: Patient presenting with typical migraine headache per patient in the setting of . Did take sumatriptan prior to arrival but having difficulty tolerating it secondary to nausea and vomiting. Given IV Reglan, fluids, and Tylenol and patient has complete resolution of her headache and is feeling like she can tolerate p.o.. I did not perform heart rate as patient is approximately 9 weeks and unlikely to obtain bedside heart rate. Patient is not presenting with complaints related to at this time will follow-up with PUBLIC ADMINISTRATION TEACHER for further monitoring. PFSH All Active Problems (Updated 07/23/25 @ 17:56 by THIEN Avelar) (Acute) Nausea & vomiting (Acute) Headache (Acute) Migraine headache without aura (Acute) Menstrual migraine (Acute) Partial epilepsy (Acute) Medical History History of facial trauma Dermatofibroma Tension headache Traumatic brain injury Surgical History History of facial surgery cranial facial surgery Family History Maternal Grandmother Heart disease Paternal Grandfather History of heart attack Social History (Updated 07/18/25 @ 17:19 by Sayda Mike MA) Smoking/Tobacco Use Status: Never Second Hand Exposure: No Smoking risk assessment performed?: Yes Alcohol Intake: former Drug use: Never Substance use type: does not use Adopted: No Caregiver/Support person: No Household members: spouse Housing: apartment Communication Needs: None Education Level: college Do you need help understanding health information?: Never 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 Sexually active: Yes Do you think of yourself as: straight/heterosexual Current gender identity: female What is your relationship status?: How often do you talk on the phone with friends or family?: twice per week How often do you get together with friends or relatives?: once per week Do you belong to any clubs or organized social groups?: no Panel score (0-1 are the most socially isolated patients): 2 What type of physical activity do you participate in: bicycling, regular exercise, other Details: hiking, skiing and running Duration: 15-30 minutes/day Frequency: 3-4 times per week Special william needs: No Agree to transfusion: Yes Seatbelt use: always Helmet use: Yes Drive intox or ride w/intox national flatbed truck driver: No Working smoke detector in home: Yes Carbon monox detector in home: Yes Firearms in home: Yes Do you feel safe at home: Yes Do you feel safe in your relationship?: Yes Victim of physical abuse: No Victim of emotional abuse: No Victim of sexual abuse: No Would you like helpful sources: No Female Reproductive History Menstrual Duration of menses: 3-5 days control method: none and condoms History History 0 Para Hx # Term Pregnancies Multiple births Hx # Pregnancies Ectopic pregnancies AB induced Hx Number of Living Children AB spontaneous
== END 2025-07-23 18:31 | disposition home or self-care (01) ==
PROVIDERS: Emergency Provider Physician Assistant; PCP Nurse Practitioner Family
DX: O99.891 Other specified diseases and conditions complicating pregnancy (principal); R51.9 Headache, unspecified; R11.2 Nausea with vomiting, unspecified
CPT/HCPCS: 99283; 99284; 96375; 80053; 96365; 83735; J0131; J2765